=== PATIENT | male | born 1945 | race Caucasian/White ===

== ENCOUNTER 2016-07-08 05:48 | Emergency (ER) | payer MEDICARE, BC ==
[~2016-07-08 05:48] MED LIST: FLOMAX0.4 MG PO; LISINOPRIL20 MG PO; OS-CAL 500+D31 EAC1 PO; PRILOSEC20 MG PO; ULTRAM50 MG PO; VITAMIN B-1000 MCG/1 SUBCUT; ZOCOR10 MG PO
[2016-07-08] MEDS ORDERED: VALIUM5 MG PO (07:00)
[2016-07-08] MEDS ORDERED: REFRESH PLUS1 EACH EYEBOTH (07:01)
[2016-07-08] MEDS ORDERED: FLONASE16 GM NASBOTH (07:03)
[2016-07-08] MEDS ORDERED: HYDROCODON-ACE1 EAC4 PO (07:04)
[2016-07-08] MEDS ORDERED: NORCO 325-5 MG1 TAB PO (07:04)
[2016-07-08] MEDS ORDERED: BASLE60 GM TOP (07:08)
[2016-07-08] MEDS ORDERED: CLARITIN10 MG PO (07:11)
[2016-07-08] MEDS ORDERED: IPRATROPIUM BRO15 ML NAS (07:11)
[2016-07-08] MEDS ORDERED: MENTHOL/SALICYLATE TOP (07:16)
[2016-07-08] MEDS ORDERED: OXYBUTYNIN CHLOR5 MG PO (07:17)
[2016-07-08] MEDS ORDERED: SEROQUEL50 MG PO (07:17)
[2016-07-08] MEDS ORDERED: DEEP SEA44 ML NASBOTH (07:18)
[2016-07-08] MEDS ORDERED: TERBINAFINE TOP (07:21)
== END 2016-07-08 16:15 | disposition short-term general hospital (02) ==
LOC: ER 05:48
DX: R07.9 Chest pain, unspecified (principal); I10 Essential (primary) hypertension; Z88.0 Allergy status to penicillin; I87.2 Venous insufficiency (chronic) (peripheral); G89.29 Other chronic pain; M54.5 Low back pain; E66.9 Obesity, unspecified; M15.9 Polyosteoarthritis, unspecified; H81.09 Meniere's disease, unspecified ear; Z87.891 Personal history of nicotine dependence; Z79.899 Other long term (current) drug therapy
CPT/HCPCS: J2270; J2405